=== PATIENT | male | born 1995 | race Caucasian/White ===

== ENCOUNTER 2017-09-26 09:57 | Outpatient (CLI) | payer OTHER ==
--- NOTE | 2017-09-26 11:09 | RAD ---
PA AND LATERAL CHEST: Indication: Dyspnea. Comparison: None. FINDINGS: The lungs are clear. Cardiomediastinal silhouette is normal. No acute osseous abnormality is evident. The visualized upper abdomen is normal. IMPRESSION: No acute cardiopulmonary abnormalities POS: [facility]
== END 2017-09-26 09:58 | disposition home or self-care (01) ==
LOC: RAD 09:57
PROVIDERS: ATTEND Internal Medicine Critical Care Medicine
DX: R06.00 Dyspnea, unspecified (principal)
CPT/HCPCS: 71046